=== PATIENT | male | born 1940 ===

== ENCOUNTER 2024-02-27 07:10 | Outpatient (CLI) | payer OTHER ==
[~2024-02-27 07:10] MED LIST: ARICEPT10 MG PO; PLAVIX75 MG PO; SIMVASTATIN40 MG PO; SYNTHROID100 MCG PO; TOPROL XL25 M1 PO; ZETIA10 MG PO
== END 2024-02-27 07:11 | disposition home or self-care (01) ==
LOC: NUCLEAR 07:10
PROVIDERS: ATTEND Internal Medicine Cardiovascular Disease
DX: Z01.810 Encounter for preprocedural cardiovascular examination (principal)
CPT/HCPCS: 78452; 93017; A9500; J0153